=== PATIENT | male | born 1965 | race Caucasian/White ===

== ENCOUNTER 2025-04-29 15:31 | Emergency (ER) | payer OTHER ==
[~2025-04-29] VITALS: Ht 177.8 cm; Wt 74.8 kg
[2025-04-29 15:50] VITALS: BP 129/93; TEMP 98.3
[2025-04-29] MEDS ORDERED: ACETAMINOPHEN 325 MG TABLET ONE (16:51)
[2025-04-29] MEDS ORDERED: KETOROLAC TROMETHAMINE 15 MG/ML VIAL ONE (16:51)
[2025-04-29] MEDS: KETOROLAC TROMETHAMINE 15 MG/ML VIAL IM ONE (16:55)
[2025-04-29] MEDS: ACETAMINOPHEN 325 MG TABLET PO ONE (16:56)
[2025-04-29] MEDS ORDERED: ACET325C7 PO (17:49)
[2025-04-29 17:55] VITALS: O2SAT 99
== END 2025-04-29 17:56 | disposition home or self-care (01) ==
LOC: ER 15:56
DX: S60.222A Contusion of left hand, initial encounter (principal); M79.642 Pain in left hand; W22.8XXA Striking against or struck by other objects, initial encounter; Y93.89 Activity, other specified; Y92.89 Other specified places as the place of occurrence of the external cause; Y99.8 Other external cause status
CPT/HCPCS: 99283; 96372; 73130; J1885